=== PATIENT | female | born 1935 | race African-American/Black ===

== ENCOUNTER 2019-08-07 11:00 | Observation (INO) | payer MEDICARE, OTHER ==
[2019-08-07] MEDS ORDERED: IPRATROPIUM/ALBUTEROL 0.5-2.5 MG/3 ML AMPUL NEB ONE ×2 (11:23→13:32)
[2019-08-07] MEDS ORDERED: OXYCODONE-ACETAMINOPHEN 5-325 MG TABLET PO ONE (11:31)
--- NOTE | 2019-08-07 11:34 | ER Document Report ---
ED Medical Screen (RME) - General Chief Complaint: Fall Injury Stated Complaint: LEFT KNEE PAIN Time Seen by Provider: 08/07/19 11:10 Notes: Patient is an 84-year-old female who presents the emergency department after a fall. She fell 2 days ago while she was in the shower. Patient is normally pretty ambulatory, but has not walked a lot since the incident. She has left knee, left hip, and left shoulder pain. She has history of bilateral shoulder and knee replacements. She also has a history of [place], COPD, hypertension, diabetes, and hyperlipidemia. Patient has albuterol treatments at home and states that she has been using her albuterol treatments. Her last treatment was yesterday. Exam: Inspiratory and expiratory wheezes noted throughout all lung navarro. I have greeted and performed a rapid initial assessment of this patient. A comprehensive ED assessment and evaluation of the patient, analysis of test results and completion of medical decision making process will be conducted by an additional ED providers. - Related Data Allergies/Adverse Reactions: No Known Allergies Allergy (Verified 08/07/19 11:05) Physical Exam - Vital signs Vitals: Temp Pulse Resp BP Pulse Ox 97.9 F 79 16 149/73 H 94 08/07/19 11:04 08/07/19 11:04 08/07/19 11:04 08/07/19 11:04 08/07/19 11:04 Course - Vital Signs Vital signs: Temp Pulse Resp BP Pulse Ox 97.9 F 79 16 149/73 H 94 08/07/19 11:04 08/07/19 11:04 08/07/19 11:04 08/07/19 11:04 08/07/19 11:04
--- NOTE | 2019-08-07 12:56 | RADIOLOGY REPORT (SQ) ---
EXAM DESCRIPTION: CHEST SINGLE VIEW COMPLETED DATE/TIME: 08/07/2019 12:47 pm REASON FOR STUDY: shortness of breath COMPARISON: None. NUMBER OF VIEWS: One view. TECHNIQUE: Single frontal radiographic view of the chest acquired. LIMITATIONS: None. FINDINGS: LUNGS AND PLEURA: No opacities, masses or pneumothorax. No pleural effusion. MEDIASTINUM AND HILAR STRUCTURES: No masses. Contour normal. HEART AND VASCULAR STRUCTURES: Mild cardiac enlargement. No failure. BONES: No acute findings. HARDWARE: None in the chest. OTHER: No other significant finding. IMPRESSION: Mild cardiomegaly. No failure. TECHNICAL DOCUMENTATION: JOB ID: [id number] [employer]- All Rights Reserved Reading location - IP/workstation name: [email or web address]
--- NOTE | 2019-08-07 12:56 | RADIOLOGY REPORT (SQ) ---
EXAM DESCRIPTION: SHOULDER LEFT 2 OR MORE VIEWS COMPLETED DATE/TIME: 08/07/2019 12:47 pm REASON FOR STUDY: fall COMPARISON: None. NUMBER OF VIEWS: Three views. TECHNIQUE: Internal rotation, external rotation, and Y view images acquired of the left shoulder. LIMITATIONS: None. FINDINGS: MINERALIZATION: Normal. BONES: No acute fracture. No worrisome bone lesions. JOINTS: Prior total joint replacement. VISUALIZED LUNGS AND RIBS: No pneumothorax. No rib fracture. SOFT TISSUES: No radiopaque foreign body. OTHER: No other significant finding. IMPRESSION: Prior total left shoulder joint replacement. No acute findings. TECHNICAL DOCUMENTATION: JOB ID: [id number] [employer]- All Rights Reserved Reading location - IP/workstation name: [email or web address]
--- NOTE | 2019-08-07 12:57 | RADIOLOGY REPORT (SQ) ---
EXAM DESCRIPTION: HIP LEFT AP/LATERAL COMPLETED DATE/TIME: 08/07/2019 12:47 pm REASON FOR STUDY: fall COMPARISON: None. NUMBER OF VIEWS: Two views. TECHNIQUE: AP pelvis and additional frog-leg view of the left hip. LIMITATIONS: None. FINDINGS: MINERALIZATION: Normal. LEFT HIP: Degenerative changes with joint space narrowing and subchondral sclerosis. No acute fractu re or dislocation. RIGHT HIP: Degenerative changes in the right hip as well with joint space narrowing, subchondral scle rosis and subchondral cysts. PUBIS AND ISCHIUM: No fracture. PELVIS: No fracture. SACRUM: No fracture or dislocation. No worrisome bone lesions. LOWER LUMBAR SPINE: No fracture or dislocation. No worrisome bone lesions. No significant disc disea se. SOFT TISSUES: No findings. OTHER: No other significant finding. IMPRESSION: Degenerative changes in both hips right greater than left. No acute fracture or disloca tion. TECHNICAL DOCUMENTATION: JOB ID: [id number] [employer]- All Rights Reserved Reading location - IP/workstation name: [email or web address]
--- NOTE | 2019-08-07 12:58 | RADIOLOGY REPORT (SQ) ---
EXAM DESCRIPTION: KNEE LEFT 4 VIEW COMPLETED DATE/TIME: 08/07/2019 12:47 pm REASON FOR STUDY: fall COMPARISON: None. NUMBER OF VIEWS: Four views. TECHNIQUE: AP, lateral, and both oblique radiographic images acquired of the left knee. LIMITATIONS: None. FINDINGS: MINERALIZATION: Normal. BONES: No acute fracture or dislocation. No worrisome bone lesions. JOINT: Prior total joint replacement. SOFT TISSUES: No soft tissue swelling. No radio-opaque foreign body. OTHER: No other significant finding. IMPRESSION: Prior total joint replacement. No acute fracture or dislocation. TECHNICAL DOCUMENTATION: JOB ID: [id number] [employer]- All Rights Reserved Reading location - IP/workstation name: [email or web address]
[2019-08-07] MEDS ORDERED: MORPHINE SULFATE 10 MG/ML INJ IV ONE (13:18)
--- NOTE | 2019-08-07 13:25 | ER Document Report ---
ED General - General Chief Complaint: Fall Injury Stated Complaint: LEFT KNEE PAIN Time Seen by Provider: 08/07/19 11:10 - HPI Notes: Patient is an 84-year-old female with a history of [place], COPD, hypertension, diabetes, neuropathy, and hyperlipidemia who presents complaining of left knee pain and left hip pain status post fall 2 days ago. Patient states that she stepped on the shower with her right foot and was about to step out with her left when her left foot slipped causing pain in the left knee in the left hip. She did not hit her head or lose consciousness. Patient states that the pain has been getting worse over the past couple days to the point where she is not ambulating because of the pain. She has not noticed any other joint swelling or bruising. She is able to eat and drink without difficulty. She is urinating normally and having normal bowel movements. Patient states that she always has some degree of wheezing as well as edema to her lower legs which is not of concern for her today. Patient states that she will use her breathing treatments when she needs to. She has not had any shortness of breath, dyspnea on exertion, dyspnea at rest, cough, chest pain, or other cardiopulmonary symptoms. Denies any headache, fever, head injury, neck pain, changes in vision/speech/mentation/hearing, URI, sore throat, palpitations, syncope, abdominal pain, nausea/vomiting/diarrhea, urinary retention, dysuria, hematuria, loss of control of bowel or bladder, numbness/tingling, saddle anesthesia, muscle paralysis, or rash. - Related Data Allergies/Adverse Reactions: No Known Allergies Allergy (Verified 08/07/19 11:05) Past Medical History - Social History Smoking Status: Unknown if Ever Smoked Family History: Reviewed & Not Pertinent Patient has suicidal ideation: No Patient has homicidal ideation: No Review of Systems - Review of Systems -: Yes All other systems reviewed and negative Physical Exam - Vital signs Vitals: Temp Pulse Resp BP Pulse Ox 97.9 F 79 16 149/73 H 94 08/07/19 11:04 08/07/19 11:04 08/07/19 11:04 08/07/19 11:04 08/07/19 11:04 - Notes Notes: PHYSICAL EXAMINATION: accompanied by female nurse GENERAL: Well-appearing, well-nourished and in no acute distress. A&Ox4. Answers questions appropriately. HEAD: Atraumatic, normocephalic. Non-tender. No nj sign EYES: Pupils equal round and reactive to light, extraocular movements intact, sclera anicteric, conjunctiva are normal. No raccoon eyes/entrapment ENT: EAC clear b/l. TM's intact b/l without erythema, fluid, or perforation. Nares patent and without discharge. oropharynx clear without exudates. No tonsilar hypertrophy or erythema. Moist mucous membranes. No sinus tenderness. NECK: Normal range of motion, supple without lymphadenopathy. No rigidity. No midline tenderness. Chest: No flail chest. equal rise/fall. Non-tender LUNGS: Breath sounds clear to auscultation bilaterally and equal. No wheezes rales or rhonchi. HEART: Regular rate and rhythm without murmurs, rubs, gallops. ABDOMEN: Soft, nontender, nondistended abdomen. No guarding, no rebound. Normal bowel sounds present. No CVA tenderness bilaterally. Musculoskeletal: Left knee: no obvious swelling, ecchymosis, or deformity. No erythema/warmth. FROM. Strength 5+/5. + tenderness lateral knee. N/V intact distal. Left hip: + tenderness left lateral hip/pelvis area. No obvious deformity or ecchymosis. Ext's otherwise b/l: FROM to passive/active. Strength 5+/5. No deficits noted. No bony tenderness of extremities. Back: FROM to passive/active. Strength 5+/5. No vertebral point tenderness, stepoffs, or deformities. No other bony tenderness or ecchymosis. Extremities: 2+ pitting edema b/l LE's. Peripheral pulses 1+. Capillary refill less than 2 seconds. NEUROLOGICAL: GCS 15. Cranial nerves grossly intact. Normal speech. Normal sensory, motor exams. Reflexes 1+ b/l lower extremities. PSYCH: Normal mood, normal affect. SKIN: Warm, Dry, normal turgor, no rashes or lesions noted. Course - Re-evaluation Re-evalutation: 08/07/19 16:28 Pt not able to ambulate. Images unremarkable. She stands, but cannot move and is crying due to knee pain. I spoke with Dr. Moser as well as Ortho, Dr. Walsh, who would like a MRI. Dr. Peacock, Radiology, cancelled MRI due to TKA and she won't be able to see anything. Left VM for Ortho to call me back in regards to 2ndary imaging study. 08/07/19 17:44 Dr. Nico bond'd the patient and questions bone bruise or ligamentous etiology. Recommends admission for ambulatory dysfunction and possible bone scan tomorrow to further evaluate. He would like a venous doppler, but does have a lower suspicion of such. Reviewed admission with patient and family who is reluctanct, but in agreement as she cannot ambulate. I did speak with Dr. Luque who accepted pt for admit for ambulatory dysf unction. - Vital Signs Vital signs: Temp Pulse Resp BP Pulse Ox 97.9 F 79 16 149/73 H 94 08/07/19 11:04 08/07/19 11:04 08/07/19 11:04 08/07/19 11:04 08/07/19 11:04 - Laboratory Result Diagrams: 08/07/19 13:13 08/07/19 13:13 Laboratory results interpreted by me: 08/07/19 08/07/19 08/07/19 13:13 13:13 13:13 WBC 13.2 H Hgb 10.8 L Hct 33.2 L RDW 18.1 H Eos % (Auto) 7.6 H Absolute Lymphs (auto) 5.4 H Absolute Monos (auto) 1.7 H Absolute Eos (auto) 1.0 H Seg Neutrophils % 37.9 L Carbon Dioxide 32 H Est GFR (MDRD) Non-Af 55 L POC Glucose AST 47 H Alkaline Phosphatase 167 H NT-Pro-B Natriuret Pep 464 H Albumin 3.4 L 08/07/19 17:16 WBC Hgb Hct RDW Eos % (Auto) Absolute Lymphs (auto) Absolute Monos (auto) Absolute Eos (auto) Seg Neutrophils % Carbon Dioxide Est GFR (MDRD) Non-Af POC Glucose 163 H AST Alkaline Phosphatase NT-Pro-B Natriuret Pep Albumin Discharge - Discharge Clinical Impression: Ambulatory dysfunction Condition: Stable Disposition: ADMITTED INPATIENT Admitting Provider: Rebel (Hospitalist) Unit Admitted: Surgical Floor
[2019-08-07 13:31] LABS: ABSOLUTE BASOPHILS # (AUTO) 0.1 10^3/uL (0.0-0.2); ABSOLUTE LYMPHOCYTES (AUTO) 5.4 10^3/uL (0.5-4.7); ABSOLUTE MONOCYTES (AUTO) 1.7 10^3/uL (0.1-1.4); BASOPHILS % (AUTO) 0.7 % (0-2); EOSINOPHILS % (AUTO) 7.6 % (0-6); HEMATOCRIT 33.2 % (36.0-47.0); HEMOGLOBIN 10.8 g/dL (12.0-15.5); LYMPHOCYTES % (AUTO) 40.8 % (13-45); MEAN CORPUSCULAR HEMOGLOBIN 27.2 pg (27.0-33.4); MEAN CORPUSCULAR HGB CONC 32.6 g/dL (32.0-36.0); MEAN CORPUSCULAR VOLUME 84 fl (80-97); PLATELET COUNT 179 10^3/uL (150-450); RED BLOOD COUNT 3.97 10^6/uL (3.72-5.28); RED CELL DISTRIBUTION WIDTH 18.1 % (11.5-14.0); SEGMENTED NEUTROPHILS % (AUTO) 37.9 % (42-78); TOTAL CELLS COUNTED % (AUTO) 100 %; WHITE BLOOD COUNT 13.2 10^3/uL (4.0-10.5)
[2019-08-07] MEDS ORDERED: OXYCODONE HCL IR 5 MG TABLET PO ONE ×2 (13:31→19:13)
[2019-08-07 13:51] LABS: ALBUMIN 3.4 g/dL (3.5-5.0); ALKALINE PHOSPHATASE 167 U/L (38-126); ANION GAP 6 (5-19); ASPARTATE AMINO TRANSFERASE 47 U/L (14-36); BILIRUBIN,DIRECT 0.2 mg/dL (0.0-0.4); BILIRUBIN,TOTAL 0.8 mg/dL (0.2-1.3); BLOOD UREA NITROGEN 17 mg/dL (7-20); CALCIUM 9.1 mg/dL (8.4-10.2); CARBON DIOXIDE 32 mmol/L (22-30); CHLORIDE 101 mmol/L (98-107); GLUCOSE 108 mg/dL (75-110); POTASSIUM 4.2 mmol/L (3.6-5.0); TOTAL PROTEIN 6.4 g/dL (6.3-8.2)
--- NOTE | 2019-08-07 14:14 | RADIOLOGY REPORT (SQ) ---
EXAM DESCRIPTION: CT PELVIS WITHOUT COMPLETED DATE/TIME: 08/07/2019 1:59 pm REASON FOR STUDY: further eval left hip/pelvis pain COMPARISON: 08/07/2019 TECHNIQUE: CT scan of the pelvis performed without intravenous or oral contrast. Images reviewed wi th soft tissue and bone windows. Reconstructed coronal and sagittal MPR images reviewed. All images stored on PACS. All CT scanners at this facility use dose modulation, iterative reconstruction, and/or weight based d osing when appropriate to reduce radiation dose to as low as reasonably achievable (ALARA). [facility]: Dose Right [facility]: CareDose [facility]: Dose Right [facility]: Teradose 4D [facility]: [employer] RADIATION DOSE: CT Rad equipment meets quality standard of care and radiation dose reduction techniq ues were employed. CTDIvol: 44.0 mGy. DLP: 1590 mGy-cm. mGy. LIMITATIONS: None. FINDINGS: PELVIC BONES: No acute fracture. No suspicious lytic/blastic osseous lesions. Osteitis p ubis. VISUALIZED SPINE: Marked degenerative changes without wedge compression deformity. HIP(S): No fracture or dislocation. Severe degenerative changes, right greater than left with the ap pearance of [id number] of the right weight-bearing surfaces. PELVIC SOFT TISSUES: No significant findings. EXTRAPELVIC SOFT TISSUES: No significant findings. OTHER: No other significant finding. IMPRESSION: No evidence of acute osseous injury. Right greater than left femoroacetabular degenerat raimundo changes. Lumbosacral degenerative changes. TECHNICAL DOCUMENTATION: JOB ID: [id number] Quality ID # [id number]: Final reports with documentation of one or more dose reduction techniques (e.g., Au tomated exposure control, adjustment of the mA and/or kV according to patient size, use of iterative reconstruction technique) 2010 [employer]- All Rights Reserved Reading location - IP/workstation name: [email or web address]
[2019-08-07] MEDS ORDERED: GLUCAGON,HUMAN RECOMB 1 MG INJ IM PRN (18:16)
[2019-08-07] MEDS ORDERED: DEXTROSE 50%-WATER 25 GM/50 ML DISP.SYRIN IV PRN ×2 (18:16)
[2019-08-07] MEDS ORDERED: DEXTROSE 40% GEL 15 GM TUBE PO PRN ×2 (18:16)
--- NOTE | 2019-08-07 18:24 | PDOC H&P ---
History of Present Illness Admission Date/PCP: 08/07/19 17:57 Patient complains of: Left knee pain History of Present Illness: LUZ MCMANUS is a 84 year old female with history of hypertension diabetes. She is here visiting from [place]. While she is getting out of the shower, she buckled her left knee and fell on the floor. No loss of consciousness or d izziness. No head trauma reported. Patient suffered progressive severe pain in her left knee and was not able to ambulate for the past 2 days after the fall. She came to the emergency room and initial work-up did not show any fractures or dislocation. She was seen by Dr. Walsh for orthopedic surgery in the emergency room apparently. He wants to do bone scan which cannot be done until tomorrow. Patient could not stand or walk to go home today. Past Medical History Cardiac Medical History: Reports: Hypertension Endocrine Medical History: Reports: Diabetes Mellitus Type 2 Past Surgical History Past Surgical History: Reports: Knee Replacement Social History Smoking Status: Never Smoker Frequency of Alcohol Use: None Family History Family History: Malignancy Parental Family History Reviewed: Yes Children Family History Reviewed: Yes Sibling(s) Family History Reviewed.: Yes Medication/Allergy Allergies/Adverse Reactions: No Known Allergies Allergy (Verified 08/07/19 11:05) Review of Systems Review of Systems: Patient is no acute distress obese Alert oriented to time place person No anxiety or depression Head: atraumatic normocephalic Pupils: are equal reactive Neck: is supple and trachea is central no lymphadenopathy No pharyngeal erythema or exudates Heart: Regular rate and rhythm Lungs: clear no distress Abdomen: nontender nondistended Neurological exam: unremarkable Musculoskeletal: Left knee tenderness No suicidal or homicidal ideation Physical Exam Vital Signs: Temp Pulse Resp BP Pulse Ox 97.9 F 79 16 149/73 H 94 08/07/19 11:04 08/07/19 11:04 08/07/19 11:04 08/07/19 11:04 08/07/19 11:04 Intake & Output 08/06/19 08/07/19 08/08/19 06:59 06:59 06:59 Weight 286 lb 2.56 oz Results Laboratory Results: 08/07/19 13:13 08/07/19 13:13 08/07/19 08/07/19 13:13 13:13 WBC 13.2 H RBC 3.97 Hgb 10.8 L Hct 33.2 L MCV 84 MCH 27.2 MCHC 32.6 RDW 18.1 H Plt Count 179 Seg Neutrophils % 37.9 L Sodium 138.7 Potassium 4.2 Chloride 101 Carbon Dioxide 32 H Anion Gap 6 BUN 17 Creatinine 0.97 Est GFR ( Amer) > 60 Glucose 108 Calcium 9.1 Total Bilirubin 0.8 AST 47 H Alkaline Phosphatase 167 H Total Protein 6.4 Albumin 3.4 L 08/07/19 13:13 NT-Pro-B Natriuret Pep 464 H Impressions: Chest X-Ray 08/07/19 11:24 IMPRESSION: Mild cardiomegaly. No failure. Hip X-Ray 08/07/19 11:24 IMPRESSION: Degenerative changes in both hips right greater than left. No acute fracture or dislocation. Knee X-Ray 08/07/19 11:24 IMPRESSION: Prior total joint replacement. No acute fracture or dislocation. Shoulder X-Ray 08/07/19 11:24 IMPRESSION: Prior total left shoulder joint replacement. No acute findings. Pelvis CT 08/07/19 13:19 IMPRESSION: No evidence of acute osseous injury. Right greater than left femoroacetabular degenerative changes. Lumbosacral degenerative changes. Assessment and Plan - Diagnosis (1) Right knee pain Is this a current diagnosis for this admission?: Yes Plan: Management per Dr. Walsh (2) Accident due to mechanical fall without injury Is this a current diagnosis for this admission?: Yes Plan: PT evaluation (3) Hypertension Is this a current diagnosis for this admission?: Yes Plan: We will restart her home medications once they are reconciled in the computer. (4) Diabetes Is this a current diagnosis for this admission?: Yes Plan: She is insulin-dependent apparently. We will restart her insulin once is reconciled in the computer. We will start insulin scale. Check A1c.
--- NOTE | 2019-08-07 19:24 | RADIOLOGY REPORT (SQ) ---
EXAM DESCRIPTION: VENOUS UNILATERAL LOWER COMPLETED DATE/TIME: 08/07/2019 7:12 pm REASON FOR STUDY: left posterior knee pain COMPARISON: None. TECHNIQUE: Dynamic and static acevedo scale and color images acquired of the left leg venous system. Se lected spectral images acquired with additional compression and augmentation maneuvers. The contralat eral common femoral vein and saphenofemoral junction were also imaged. Images stored on PACS. LIMITATIONS: None. FINDINGS: COMMON FEMORAL: Normal phasicity, compression and augmentation. No visualized echogenic ma terial on acevedo scale. No defects on color images. FEMORAL: Normal compression and augmentation. No visualized echogenic material on acevedo scale. No defe cts on color images. POPLITEAL: Normal compression, augmentation. No visualized echogenic material on acevedo scale. No defec ts on color images. CALF VESSELS: Normal compression, augmentation. No visualized echogenic material on acevedo scale. No de fects on color images. GSV and SSV: Normal compression, augmentation. No visualized echogenic material on acevedo scale. No def ects on color images. ANY DEEP VENOUS INSUFFICIENCY: Not evaluated. ANY EVIDENCE OF POPLITEAL CYST: No. OTHER: No other significant finding. CONTRALATERAL COMMON FEMORAL VEIN AND SAPHENOFEMORAL JUNCTION: Normal phasicity, compression and augmentation. No visualized echogenic material on acevedo scale. No de fects on color images. IMPRESSION: NO EVIDENCE DVT OR SVT IN THE LEFT LEG. TECHNICAL DOCUMENTATION: JOB ID: [id number] 2010 [employer]- All Rights Reserved Reading location - IP/workstation name: [email or web address]
--- NOTE | 2019-08-07 20:59 | PDOC CONSULTATION ---
Consultation Consult Date: 08/07/19 Provider Consulted: CHAI TAYLOR JR History of Present Illness Admission Date/PCP: 08/07/19 17:57 History of Present Illness: LUZ MCMANUS is a 84 year old female who presents for inability to ambulate, left knee and left thigh pain. She has a history of bilateral total knee replac ements. She had a fall 3 days ago and since that time has been having difficulty ambulating and reports weakness and giving way of the left knee. Pain is diffuse, constant and not responding to conservative treatments such as rest and over the counter pain medications. Symptoms have not improved over the past few days. This has not happened to her in the past. Past Medical History Cardiac Medical History: Reports: Hypertension Endocrine Medical History: Reports: Diabetes Mellitus Type 2 Past Surgical History Past Surgical History: Reports: Knee Replacement Social History Smoking Status: Never Smoker Frequency of Alcohol Use: None Family History Family History: Malignancy Parental Family History Reviewed: No Children Family History Reviewed: No Sibling(s) Family History Reviewed.: No Medication/Allergy Allergies/Adverse Reactions: No Known Allergies Allergy (Verified 08/07/19 11:05) Physical Exam Vital Signs: Temp Pulse Resp BP Pulse Ox 98.3 F 79 22 H 165/58 H 100 08/07/19 13:31 08/07/19 11:04 08/07/19 20:02 08/07/19 20:02 08/07/19 18:03 Intake & Output 08/06/19 08/07/19 08/08/19 06:59 06:59 06:59 Weight 129.8 kg Physical Exam: General appearance: PRESENT: no acute distress, cooperative, well-nourished, morbidly obese Head exam: PRESENT: atraumatic, normocephalic Eye exam: PRESENT: EOMI Ear exam: PRESENT: normal external ear exam Mouth exam: PRESENT: neck supple Neck exam: ABSENT: tracheal deviation Respiratory exam: PRESENT: symmetrical, unlabored. ABSENT: accessory muscle use, wheezes Pulses: PRESENT: normal radial pulses, normal dorsalis pedis pul Vascular exam: PRESENT: normal capillary refill GI/Abdominal exam: ABSENT: distended, firm Extremities exam: PRESENT: full ROM Musculoskeletal exam: PRESENT: full ROM, normal inspection Neurological exam: PRESENT: alert, awake, oriented to person, oriented to place, oriented to time Psychiatric exam: PRESENT: appropriate affect. ABSENT: agitated Focused psych exam: ABSENT: catatonic Skin exam: PRESENT: intact. ABSENT: dry All as above aside from that noted in the HPI and the following: Skin is intact, diffuse pain to palpation about the left knee and lateral thigh, no swelling or effusion, no pain to the groin, no pain with varus valgus stress, minimal tenderness about the patella, able to activate the quad and elevate heel from the bed. Calf soft, non-tender except for superolateral calf tenderness into the popliteal fossa, no edema, pulses 2+, sensation and motor function grossly intact. Results Laboratory Results: 08/07/19 13:13 08/07/19 13:13 08/07/19 08/07/19 13:13 13:13 WBC 13.2 H RBC 3.97 Hgb 10.8 L Hct 33.2 L MCV 84 MCH 27.2 MCHC 32.6 RDW 18.1 H Plt Count 179 Seg Neutrophils % 37.9 L Sodium 138.7 Potassium 4.2 Chloride 101 Carbon Dioxide 32 H Anion Gap 6 BUN 17 Creatinine 0.97 Est GFR ( Amer) > 60 Glucose 108 Calcium 9.1 Total Bilirubin 0.8 AST 47 H Alkaline Phosphatase 167 H Total Protein 6.4 Albumin 3.4 L 08/07/19 13:13 NT-Pro-B Natriuret Pep 464 H Impressions: Chest X-Ray 08/07/19 11:24 IMPRESSION: Mild cardiomegaly. No failure. Hip X-Ray 08/07/19 11:24 IMPRESSION: Degenerative changes in both hips right greater than left. No acute fracture or dislocation. Knee X-Ray 08/07/19 11:24 IMPRESSION: Prior total joint replacement. No acute fracture or dislocation. Shoulder X-Ray 08/07/19 11:24 IMPRESSION: Prior total left shoulder joint replacement. No acute findings. Pelvis CT 08/07/19 13:19 IMPRESSION: No evidence of acute osseous injury. Right greater than left femoroacetabular degenerative changes. Lumbosacral degenerative changes. Venous Doppler Study 08/07/19 17:22 IMPRESSION: NO EVIDENCE DVT OR SVT IN THE LEFT LEG. Assessment & Plan - Diagnosis (1) Obesity Plan: She has a weight loss plan in place and has been loosing weight. I explained that this will greatly help reduce the stress across her joints. (2) Accident due to mechanical fall without injury Is this a current diagnosis for this admission?: Yes Plan: - There is no notable bony change noted in the hip or knee on XR of the Pelvis and hip, and left knee, or CT of the pelvis. She has minimal pain with axial compression. - She is weight bearing as tolerated. - Will evaluate for improvement. - Consider MRI to evaluate for extensor mechanism injury or Bone scan to evaluate for stress fracture but these are unlikely diagnoses given current findings and physical exam.
[2019-08-07] MEDS ORDERED: LEVALBUTEROL HCL NEB 0.63 MG/3 ML AMPUL NEB PRN (22:06)
[2019-08-07] MEDS: IPRATROPIUM BROMIDE 0.02% NEB 0.5 MG/2.5 ML AMPUL NEB SCH (23:53)
[2019-08-07] MEDS: LEVALBUTEROL HCL NEB 1.25 MG/3 ML AMPUL NEB SCH (23:53)
[2019-08-08] MEDS ORDERED: INSULIN GLARGINE,HUM.REC.ANLOG 1,000 UNIT/10 ML VIAL (PYX) SUBCUT PRN (00:12)
[2019-08-08] MEDS ORDERED: INSULIN GLARGINE,HUM.REC.ANLOG 1,000 UNIT/10 ML VIAL (PYX) SUBCUT ONE (00:16)
[2019-08-08] MEDS: OXYCODONE-ACETAMINOPHEN 5-325 MG TABLET PO PRN ×4 (00:19→22:44)
[2019-08-08] MEDS ORDERED: INSULIN GLARGINE,HUM.REC.ANLOG 1,000 UNIT/10 ML VIAL SUBCUT ONE (00:30)
[2019-08-08] MEDS: PREGABALIN 100 MG CAPSULE PO SCH ×3 (06:17→21:27)
[2019-08-08] MEDS: PANTOPRAZOLE SODIUM 40 MG TABLET.DR PO SCH (06:18)
[2019-08-08] MEDS ORDERED: ALBUTEROL SULFATE 0.083% NEB 2.5 MG/3 ML AMPUL NEB PRN (08:09)
[2019-08-08] MEDS: IPRATROPIUM BROMIDE 0.02% NEB 0.5 MG/2.5 ML AMPUL NEB SCH ×2 (08:27→16:29)
[2019-08-08] MEDS: INSULIN LISPRO 100 UNIT/ML 3 ML VIAL SUBCUT SCH (08:27)
[2019-08-08] MEDS: LEVALBUTEROL HCL NEB 1.25 MG/3 ML AMPUL NEB SCH ×2 (08:27→16:29)
[2019-08-08] MEDS: BUDESONIDE NEB 0.5 MG/2 ML AMPUL NEB SCH ×2 (08:27→19:44)
[2019-08-08 08:41] LABS: ANION GAP 5 (5-19); BLOOD UREA NITROGEN 15 mg/dL (7-20); CARBON DIOXIDE 32 mmol/L (22-30); CHLORIDE 102 mmol/L (98-107); GLUCOSE 117 mg/dL (75-110); POTASSIUM 4.2 mmol/L (3.6-5.0)
[2019-08-08] MEDS ORDERED: (PENDING PHARMACY ID) (Rabeprazole Sodium [Aciphex] 20 MG) PO SCH (10:00)
[2019-08-08] MEDS ORDERED: INSULIN LISPRO 15 UNIT SQ SCH (10:00)
[2019-08-08 10:13] LABS: HEMATOCRIT 31.2 % (36.0-47.0); HEMOGLOBIN 10.2 g/dL (12.0-15.5); MEAN CORPUSCULAR HEMOGLOBIN 27.2 pg (27.0-33.4); MEAN CORPUSCULAR HGB CONC 32.6 g/dL (32.0-36.0); MEAN CORPUSCULAR VOLUME 84 fl (80-97); PLATELET COUNT 174 10^3/uL (150-450); RED BLOOD COUNT 3.74 10^6/uL (3.72-5.28); WHITE BLOOD COUNT 11.3 10^3/uL (4.0-10.5)
[2019-08-08] MEDS: FUROSEMIDE 40 MG TABLET PO SCH (10:53)
[2019-08-08] MEDS: ASPIRIN 81 MG TABLET, ENT COATED PO SCH (10:53)
[2019-08-08] MEDS: CLOPIDOGREL BISULFATE 75 MG TABLET PO SCH (10:53)
[2019-08-08] MEDS: AMLODIPINE BESYLATE 5 MG TABLET PO SCH (10:53)
[2019-08-08] MEDS: ENOXAPARIN SODIUM INJ 40 MG/0.4 ML DISP.SYRIN SUBCUT SCH (10:54)
[2019-08-08] MEDS: PANTOPRAZOLE SODIUM 20 MG TABLET.DR PO SCH (10:56)
--- NOTE | 2019-08-08 11:07 | PDOC PROGRESS REPORT ---
Subjective Progress Note for:: 08/08/19 Subjective:: Patient does not report any improvement since seen in the emergency department. They have not worked with PT yet this morning. I questioned her further on the nature of her fall. After her trip she had not attempted ambulation again and was in bed for 3 days hoping that the pain would get better, but since it did not she presented to the emergency department. She understands that it is likely a muscle strain and will require mobilization and effort to help work out the pain in return to walking. She walks with a walker at baseline. Reason For Visit: KNEE PAIN Physical Exam Vital Signs: Temp Pulse Resp BP Pulse Ox 98.1 F 80 16 139/64 H 94 08/08/19 07:30 08/08/19 08:27 08/08/19 08:27 08/08/19 07:30 08/08/19 08:27 Intake & Output 08/07/19 08/08/19 08/09/19 06:59 06:59 06:59 Intake Total 260 Balance 260 Weight 128.7 kg Physical Exam: General appearance: PRESENT: no acute distress, cooperative, well-nourished, morbidly obese Head exam: PRESENT: atraumatic, normocephalic Eye exam: PRESENT: EOMI Ear exam: PRESENT: normal external ear exam Mouth exam: PRESENT: neck supple Neck exam: ABSENT: tracheal deviation Respiratory exam: PRESENT: symmetrical, unlabored. ABSENT: accessory muscle use, wheezes Pulses: PRESENT: normal radial pulses, normal dorsalis pedis pul Vascular exam: PRESENT: normal capillary refill GI/Abdominal exam: ABSENT: distended, firm Extremities exam: PRESENT: full ROM Musculoskeletal exam: PRESENT: full ROM, normal inspection Neurological exam: PRESENT: alert, awake, oriented to person, oriented to place, oriented to time Psychiatric exam: PRESENT: appropriate affect. ABSENT: agitated Focused psych exam: ABSENT: catatonic Skin exam: PRESENT: intact. ABSENT: dry All as above aside from that noted in the HPI and the following: Left lower extremity Still having pain to the left knee. Attempted straight leg raise at bedside today was limited due to pain in the knee and the lateral thigh but not obviously coming from the back. Calf is soft and nontender. No change in swelling Results Laboratory Results: 08/08/19 09:52 08/08/19 05:40 0908/07/19 08/08/19 13:13 13:13 05:40 WBC 13.2 H Cancelled RBC 3.97 Cancelled Hgb 10.8 L Cancelled Hct 33.2 L Cancelled MCV 84 Cancelled MCH 27.2 Cancelled MCHC 32.6 Cancelled RDW 18.1 H Cancelled Plt Count 179 Cancelled Seg Neutrophils % 37.9 L Sodium 138.7 Potassium 4.2 Chloride 101 Carbon Dioxide 32 H Anion Gap 6 BUN 17 Creatinine 0.97 Est GFR ( Amer) > 60 Glucose 108 Calcium 9.1 Total Bilirubin 0.8 AST 47 H Alkaline Phosphatase 167 H Total Protein 6.4 Albumin 3.4 L 08/08/19 08/08/19 05:40 09:52 WBC 11.3 H RBC 3.74 Hgb 10.2 L Hct 31.2 L MCV 84 MCH 27.2 MCHC 32.6 RDW 18.0 H Plt Count 174 Seg Neutrophils % Sodium 139.2 Potassium 4.2 Chloride 102 Carbon Dioxide 32 H Anion Gap 5 BUN 15 Creatinine 0.90 Est GFR ( Amer) > 60 Glucose 117 H Calcium 9.0 Total Bilirubin AST Alkaline Phosphatase Total Protein Albumin 08/07/19 13:13 NT-Pro-B Natriuret Pep 464 H Impressions: Chest X-Ray 08/07/19 11:24 IMPRESSION: Mild cardiomegaly. No failure. Hip X-Ray 08/07/19 11:24 IMPRESSION: Degenerative changes in both hips right greater than left. No acute fracture or dislocation. Knee X-Ray 08/07/19 11:24 IMPRESSION: Prior total joint replacement. No acute fracture or dislocation. Shoulder X-Ray 08/07/19 11:24 IMPRESSION: Prior total left shoulder joint replacement. No acute findings. Pelvis CT 08/07/19 13:19 IMPRESSION: No evidence of acute osseous injury. Right greater than left femoroacetabular degenerative changes. Lumbosacral degenerative changes. Venous Doppler Study 08/07/19 17:22 IMPRESSION: NO EVIDENCE DVT OR SVT IN THE LEFT LEG. Assessment & Plan - Diagnosis (2) Accident due to mechanical fall without injury Is this a current diagnosis for this admission?: Yes (3) History of knee joint replacement Is this a current diagnosis for this admission?: Yes Plan: At this time there is no overt sign of instability or insult to the prosthesis or surrounding ligaments. Stability is still intact however she has much pain to palpation. -We will follow with bone scan today to evaluate for potential prosthetic loosen ing however looking at the x-rays I do not think this is going to be the case. -Doppler was negative for DVT -If all is negative then she is to be weightbearing as tolerated. She understands that this will likely be painful but necessary. -Strongly encouraged physical therapy to continue to mobilize the patient and potentially find exercises that she can do to strengthen and stretch her left lower extremity while in bed or in a seated position. She should be doing this multiple times throughout the day.
--- NOTE | 2019-08-08 11:19 | PDOC PROGRESS REPORT ---
Subjective Progress Note for:: 08/08/19 Subjective:: 08/07: LUZ MCMANUS is a 84 year old female with history of hypertension diabetes. She is here visiting from [place]. While she is getting out of the shower, she buckled her left knee and fell on the floor. No loss of consciousness or dizziness. No head trauma reported. Patient suffered progressive severe pain in her left knee and was not able to ambulate for the past 2 days after the fall. She came to the emergency room and initial work-up did not show any fractures or dislocation. She was seen by Dr. Walsh for orthopedic surgery in the emergency room apparently. He wants to do bone scan which cannot be done until tomorrow. Patient could not stand or walk to go home today. 08/08: Patient was seen and examined. She still having pain in her knee. Hemoglobin A1c 7.7. Blood pressure is appropriate. Reason For Visit: KNEE PAIN Physical Exam Vital Signs: Temp Pulse Resp BP Pulse Ox 98.1 F 80 16 139/64 H 94 08/08/19 07:30 08/08/19 08:27 08/08/19 08:27 08/08/19 07:30 08/08/19 08:27 Intake & Output 08/07/19 08/08/19 08/09/19 06:59 06:59 06:59 Intake Total 260 Balance 260 Weight 283 lb 11.759 oz Exam: Patient is no acute distress obese Alert oriented to time place person No anxiety or depression Head: atraumatic normocephalic Pupils: are equal reactive Neck: is supple and trachea is central no lymphadenopathy No pharyngeal erythema or exudates Heart: Regular rate and rhythm Lungs: clear no distress Abdomen: nontender nondistended Neurological exam: unremarkable Musculoskeletal: Left knee tenderness No suicidal or homicidal ideation Results Laboratory Results: 08/08/19 09:52 08/08/19 05:40 08/07/19 08/07/19 08/08/19 13:13 13:13 05:40 WBC 13.2 H Cancelled RBC 3.97 Cancelled Hgb 10.8 L Cancelled Hct 33.2 L Cancelled MCV 84 Cancelled MCH 27.2 Cancelled MCHC 32.6 Cancelled RDW 18.1 H Cancelled Plt Count 179 Cancelled Seg Neutrophils % 37.9 L Sodium 138.7 Potassium 4.2 Chloride 101 Carbon Dioxide 32 H Anion Gap 6 BUN 17 Creatinine 0.97 Est GFR ( Amer) > 60 Glucose 108 Calcium 9.1 Total Bilirubin 0.8 AST 47 H Alkaline Phosphatase 167 H Total Protein 6.4 Albumin 3.4 L 08/08/19 08/08/19 05:40 09:52 WBC 11.3 H RBC 3.74 Hgb 10.2 L Hct 31.2 L MCV 84 MCH 27.2 MCHC 32.6 RDW 18.0 H Plt Count 174 Seg Neutrophils % Sodium 139.2 Potassium 4.2 Chloride 102 Carbon Dioxide 32 H Anion Gap 5 BUN 15 Creatinine 0.90 Est GFR ( Amer) > 60 Glucose 117 H Calcium 9.0 Total Bilirubin AST Alkaline Phosphatase Total Protein Albumin 08/07/19 13:13 NT-Pro-B Natriuret Pep 464 H Impressions: Chest X-Ray 08/07/19 11:24 IMPRESSION: Mild cardiomegaly. No failure. Hip X-Ray 08/07/19 11:24 IMPRESSION: Degenerative changes in both hips right greater than left. No acute fracture or dislocation. Knee X-Ray 08/07/19 11:24 IMPRESSION: Prior total joint replacement. No acute fracture or dislocation. Shoulder X-Ray 08/07/19 11:24 IMPRESSION: Prior total left shoulder joint replacement. No acute findings. Pelvis CT 08/07/19 13:19 IMPRESSION: No evidence of acute osseous injury. Right greater than left femoroacetabular degenerative changes. Lumbosacral degenerative changes. Venous Doppler Study 08/07/19 17:22 IMPRESSION: NO EVIDENCE DVT OR SVT IN THE LEFT LEG. Assessment and Plan - Diagnosis (1) Right knee pain Is this a current diagnosis for this admission?: Yes (2) Accident due to mechanical fall without injury Is this a current diagnosis for this admission?: Yes (3) Hypertension Is this a current diagnosis for this admission?: Yes (4) Diabetes Is this a current diagnosis for this admission?: Yes - Plan Summary Plan Summary: (1) Right knee pain Management per Dr. Walsh (2) Accident due to mechanical fall without injury PT evaluation as per Ortho (3) Hypertension Restarted her home medications. Monitor blood pressure. (4) Diabetes Continue scheduled insulin. Continue insulin scale. A1c 7.7. Continue to monitor glucose levels.
[2019-08-08] MEDS: FLUTICASONE/VILANTEROL 200-25 MCG/DOSE IH SCH (13:08)
--- NOTE | 2019-08-08 16:37 | RADIOLOGY REPORT (SQ) ---
EXAM DESCRIPTION: CT LT LOWER EXTREMITY WITHOUT COMPLETED DATE/TIME: 08/08/2019 4:17 pm REASON FOR STUDY: severe left knee pain after fall COMPARISON: None. TECHNIQUE: CT scan of the left knee performed without contrast. Images reviewed with soft tissue an d bone windows. Reconstructed coronal and sagittal MPR images reviewed. All images stored on PACS. All CT scanners at this facility use dose modulation, iterative reconstruction, and/or weight based d osing when appropriate to reduce radiation dose to as low as reasonably achievable (ALARA). [facility]: Dose Right [facility]: CareDose [facility]: Dose Right [facility]: Teradose 4D [facility]: [employer] RADIATION DOSE: CT Rad equipment meets quality standard of care and radiation dose reduction techniq ues were employed. CTDIvol: 4.1 mGy. DLP: 85 mGy-cm. mGy. LIMITATIONS: None. FINDINGS: No fracture dislocation. Total knee arthroplasty hardware appears in stable position. Mi ld anterior soft tissue swelling. OTHER: No other significant finding. IMPRESSION: No significant or acute findings. TECHNICAL DOCUMENTATION: JOB ID: [id number] MS-72 Quality ID # [id number]: Final reports with documentation of one or more dose reduction techniques (e.g., Au tomated exposure control, adjustment of the mA and/or kV according to patient size, use of iterative reconstruction technique) 2010 [employer]- All Rights Reserved Reading location - IP/workstation name: [email or web address]
[2019-08-08] MEDS ORDERED: INSULIN GLARGINE,HUM.REC.ANLOG 1,000 UNIT/10 ML VIAL SUBCUT SCH ×2 (18:00→22:00)
[2019-08-09] MEDS: LEVALBUTEROL HCL NEB 1.25 MG/3 ML AMPUL NEB SCH ×2 (00:51→08:00)
[2019-08-09] MEDS: IPRATROPIUM BROMIDE 0.02% NEB 0.5 MG/2.5 ML AMPUL NEB SCH ×2 (00:51→08:00)
[2019-08-09] MEDS: PANTOPRAZOLE SODIUM 20 MG TABLET.DR PO SCH (07:02)
[2019-08-09] MEDS: PANTOPRAZOLE SODIUM 40 MG TABLET.DR PO SCH (07:02)
[2019-08-09] MEDS: PREGABALIN 100 MG CAPSULE PO SCH ×2 (07:02→13:38)
--- NOTE | 2019-08-09 07:27 | PDOC PROGRESS REPORT ---
Subjective Subjective:: She is feeling much better this morning, reports walking yesterday and tolerating it well. She is much improved over her pain when she arrived. Reason For Visit: KNEE PAIN Physical Exam Vital Signs: Temp Pulse Resp BP Pulse Ox 98.5 F 83 17 162/64 H 92 08/09/19 00:17 08/09/19 00:54 08/09/19 00:54 08/09/19 00:17 08/09/19 00:54 Intake & Output 08/08/19 08/09/19 08/10/19 06:59 06:59 06:59 Intake Total 260 620 Balance 260 620 Weight 128.7 kg 131.9 kg Physical Exam: General appearance: PRESENT: no acute distress, cooperative, well-nourished, morbidly obese Head exam: PRESENT: atraumatic, normocephalic Eye exam: PRESENT: EOMI Ear exam: PRESENT: normal external ear exam Mouth exam: PRESENT: neck supple Neck exam: ABSENT: tracheal deviation Respiratory exam: PRESENT: symmetrical, unlabored. ABSENT: accessory muscle use, wheezes Pulses: PRESENT: normal radial pulses, normal dorsalis pedis pul Vascular exam: PRESENT: normal capillary refill GI/Abdominal exam: ABSENT: distended, firm Extremities exam: PRESENT: full ROM Musculoskeletal exam: PRESENT: full ROM, normal inspection Neurological exam: PRESENT: alert, awake, oriented to person, oriented to place, oriented to time Psychiatric exam: PRESENT: appropriate affect. ABSENT: agitated Focused psych exam: ABSENT: catatonic Skin exam: PRESENT: intact. ABSENT: dry All as above aside from that noted in the HPI and the following: Left lower extremity Still having pain to the left knee. Attempted straight leg raise at bedside today was limited due to pain in the knee and the lateral thigh but not obviously coming from the back. Calf is soft and nontender. No change in swelling Results Laboratory Results: 08/08/19 09:52 08/08/19 05:40 08/08/19 08/08/19 08/08/19 05:40 05:40 09:52 WBC Cancelled 11.3 H RBC Cancelled 3.74 Hgb Cancelled 10.2 L Hct Cancelled 31.2 L MCV Cancelled 84 MCH Cancelled 27.2 MCHC Cancelled 32.6 RDW Cancelled 18.0 H Plt Count Cancelled 174 Sodium 139.2 Potassium 4.2 Chloride 102 Carbon Dioxide 32 H Anion Gap 5 BUN 15 Creatinine 0.90 Est GFR ( Amer) > 60 Glucose 117 H Calcium 9.0 08/07/19 13:13 NT-Pro-B Natriuret Pep 464 H Impressions: Chest X-Ray 08/07/19 11:24 IMPRESSION: Mild cardiomegaly. No failure. Hip X-Ray 08/07/19 11:24 IMPRESSION: Degenerative changes in both hips right greater than left. No acute fracture or dislocation. Knee X-Ray 08/07/19 11:24 IMPRESSION: Prior total joint replacement. No acute fracture or dislocation. Shoulder X-Ray 08/07/19 11:24 IMPRESSION: Prior total left shoulder joint replacement. No acute findings. Pelvis CT 08/07/19 13:19 IMPRESSION: No evidence of acute osseous injury. Right greater than left femoroacetabular degenerative changes. Lumbosacral degenerative changes. Venous Doppler Study 08/07/19 17:22 IMPRESSION: NO EVIDENCE DVT OR SVT IN THE LEFT LEG. Lower Extremity CT 08/08/19 00:00 IMPRESSION: No significant or acute findings. Assessment & Plan - Diagnosis (2) Accident due to mechanical fall without injury Is this a current diagnosis for this admission?: Yes Plan: -She was able to walk with therapy yesterday. Reportedly up to 60 feet. She tolerated it well and this morning is encouraged by her progress. Pain was improved on ambulation over prior attempts -She is able to perform heel slides in bed with her left knee. This is an improvement over yesterday. -CT scan of left knee is negative for loose prosthesis or fracture -Given her physical exam the CT results, further investigation of potential occult or stress fracture is not warranted. We will cancel the bone scan at this time. -The patient is orthopedically stable and is okay for discharge from an orthopedic standpoint (3) History of knee joint replacement Is this a current diagnosis for this admission?: Yes
[2019-08-09] MEDS: BUDESONIDE NEB 0.5 MG/2 ML AMPUL NEB SCH (08:00)
--- NOTE | 2019-08-09 09:40 | PDOC DISCHARGE SUMMARY ---
General - Admit/Disc Date/PCP Admission Date/Primary Care Provider: 08/07/19 17:57 Discharge Date: 08/09/19 - Discharge Diagnosis (1) Right knee pain Is this a current diagnosis for this admission?: Yes (2) Accident due to mechanical fall without injury Is this a current diagnosis for this admission?: Yes (3) Hypertension Is this a current diagnosis for this admission?: Yes (4) Diabetes Is this a current diagnosis for this admission?: Yes - Additional Information Discharge Diet: As Tolerated Discharge Activity: Activity As Tolerated Home Medications: Albuterol Sulfate [Ventolin 0.083% Neb 2.5 mg/3 mL Ampul] 2.5 mg NEB RTQIDP PRN 08/07/19 Amlodipine Besylate [Norvasc 5 mg Tablet] 5 mg PO DAILY 08/07/19 Aspirin [Adult Low Dose Aspirin EC] 81 mg PO DAILY 08/07/19 Budesonide/Formoterol Fumarate [Symbicort HFA 160-4.5 mcg Inhaler 6 gm] 2 puff IH DAILY 08/07/19 Clopidogrel Bisulfate [Plavix 75 mg Tablet] 75 mg PO DAILY 08/07/19 Furosemide [Lasix 40 mg Tablet] 40 mg PO DAILY 08/07/19 Insulin Glargine,Hum.rec.anlog [Lantus Insulin 100 Unit/1 ml 10 ml] 56 units SQ QPM 08/07/19 Insulin Lispro [Humalog Kwikpen U-100] 15 units SQ TID 08/07/19 Oxycodone HCl/Acetaminophen [Percocet 10-325 mg Tablet] 1 tab PO Q6HP PRN 08/07/19 Pregabalin [Lyrica 100 mg Capsule] 100 mg PO Q8 08/07/19 Rabeprazole Sodium [Aciphex] 20 mg PO DAILY 08/07/19 History of Present Illness History of Present Illness: LUZ MCMANUS is a 84 year old female with history of hypertension diabetes. She is here visiting from [place]. While she is getting out of the shower, she buckled her left knee and fell on the floor. No loss of consciousness or dizziness. No head trauma reported. Patient suffered progressive severe pain in her left knee and was not able to ambulate for the past 2 days after the fall. She came to the emergency room and initial work-up did not show any fractures or dislocation. She was seen by Dr. Walsh for orthopedic surgery in the emergency room apparently. He wants to do bone scan which cannot be done until tomorrow. Patient could not stand or walk to go home today. Hospital Course Hospital Course: 08/07: LUZ MCMANUS is a 84 year old female with history of hypertension diabetes. She is here visiting from [place]. While she is getting out of the shower, she buckled her left knee and fell on the floor. No loss of consciousness or dizziness. No head trauma reported. Patient suffered progressive severe pain in her left knee and was not able to ambulate for the past 2 days after the fall. She came to the emergency room and initial work-up did not show any fractures or dislocation. She was seen by Dr. Walsh for orthopedic surgery in the emergency room apparently. He wants to do bone scan which cannot be done until tomorrow. Patient could not stand or walk to go home today. 08/08: Patient was seen and examined. She still having pain in her knee. H emoglobin A1c 7.7. Blood pressure is appropriate. (1) Right knee pain Cleared for discharge per Dr. Walsh. Discharged home with home care. (2) Accident due to mechanical fall without injury PT evaluation as per Ortho (3) Hypertension Restarted her home medications. Monitor blood pressure. (4) Diabetes Continue scheduled insulin. Continue insulin scale. A1c 7.7. Continue to monitor glucose levels. Physical Exam Vital Signs: Temp Pulse Resp BP Pulse Ox 97.8 F 71 16 154/74 H 94 08/09/19 07:34 08/09/19 08:05 08/09/19 08:05 08/09/19 07:34 08/09/19 08:05 Intake & Output 08/08/19 08/09/19 08/10/19 06:59 06:59 06:59 Intake Total 260 620 Balance 260 620 Weight 283 lb 11.759 oz 290 lb 12.635 oz Exam: Patient is no acute distress obese Alert oriented to time place person No anxiety or depression Head: atraumatic normocephalic Pupils: are equal reactive Neck: is supple and trachea is central no lymphadenopathy No pharyngeal erythema or exudates Heart: Regular rate and rhythm Lungs: clear no distress Abdomen: nontender nondistended Neurological exam: unremarkable Musculoskeletal: Left knee tenderness No suicidal or homicidal ideation Results Laboratory Results: 08/08/19 09:52 08/08/19 05:40 08/08/19 09:52 WBC 11.3 H RBC 3.74 Hgb 10.2 L Hct 31.2 L MCV 84 MCH 27.2 MCHC 32.6 RDW 18.0 H Plt Count 174 08/07/19 13:13 NT-Pro-B Natriuret Pep 464 H Impressions: Chest X-Ray 08/07/19 11:24 IMPRESSION: Mild cardiomegaly. No failure. Hip X-Ray 08/07/19 11:24 IMPRESSION: Degenerative changes in both hips right greater than left. No acute fracture or dislocation. Knee X-Ray 08/07/19 11:24 IMPRESSION: Prior total joint replacement. No acute fracture or dislocation. Shoulder X-Ray 08/07/19 11:24 IMPRESSION: Prior total left shoulder joint replacement. No acute findings. Pelvis CT 08/07/19 13:19 IMPRESSION: No evidence of acute osseous injury. Right greater than left femoroacetabular degenerative changes. Lumbosacral degenerative changes. Venous Doppler Study 08/07/19 17:22 IMPRESSION: NO EVIDENCE DVT OR SVT IN THE LEFT LEG. Lower Extremity CT 08/08/19 00:00 IMPRESSION: No significant or acute findings. Qualifiers - * PATIENT BEING DISCHARGED WITH ANY OF THE FOLLOWING DIAGNOSIS: No Acute Heart Failure - Is this a Heart Failure Patient?: No
[2019-08-09] MEDS: INSULIN LISPRO 100 UNIT/ML 3 ML VIAL SUBCUT SCH (09:44)
[2019-08-09] MEDS: FUROSEMIDE 40 MG TABLET PO SCH (10:21)
[2019-08-09] MEDS: FLUTICASONE/VILANTEROL 200-25 MCG/DOSE IH SCH (10:21)
[2019-08-09] MEDS: ASPIRIN 81 MG TABLET, ENT COATED PO SCH (10:21)
[2019-08-09] MEDS: AMLODIPINE BESYLATE 5 MG TABLET PO SCH (10:21)
[2019-08-09] MEDS: CLOPIDOGREL BISULFATE 75 MG TABLET PO SCH (10:21)
[2019-08-09] MEDS: ENOXAPARIN SODIUM INJ 40 MG/0.4 ML DISP.SYRIN SUBCUT SCH (10:22)
[2019-08-09 10:30] VITALS: BP 148/89
[2019-08-09] MEDS: OXYCODONE-ACETAMINOPHEN 5-325 MG TABLET PO PRN (11:02)
== END 2019-08-09 15:38 | disposition home health service (06) ==
LOC: ER 11:00 → INTOOBSV 17:57 → EH 17:57 → 4N 20:30
PROVIDERS: ADMIT Family Medicine; ATTEND Family Medicine
DX: M25.562 Pain in left knee (principal); W01.0XXA Fall on same level from slipping, tripping and stumbling without subsequent striking against object, initial encounter; R26.2 Difficulty in walking, not elsewhere classified; I10 Essential (primary) hypertension; E66.01 Morbid (severe) obesity due to excess calories; R53.1 Weakness; M25.552 Pain in left hip; E11.40 Type 2 diabetes mellitus with diabetic neuropathy, unspecified; R60.0 Localized edema; R06.2 Wheezing; M25.512 Pain in left shoulder; Z79.899 Other long term (current) drug therapy; Z79.82 Long term (current) use of aspirin; Z96.653 Presence of artificial knee joint, bilateral; Z79.4 Long term (current) use of insulin; Z96.612 Presence of left artificial shoulder joint; Z96.611 Presence of right artificial shoulder joint
CPT/HCPCS: 94640 ×3; 99285; 36415 ×2; 82962 ×3; 85025; 85027; 80048; 80053; 83036; 83880; 93971; 71045; 73502; 73564; 73030; 72192; 73700; 97163; G0378 ×4; A9270 ×15; J1650; J3490 ×8; J1815; J7620